=== PATIENT | female | born 1995 | race Caucasian/White ===

== ENCOUNTER 2018-04-30 04:53 | Emergency (ER) | payer MEDICAID ==
[~2018-04-30] VITALS: Ht 162.6 cm; Wt 124.9 kg
[2018-04-30 06:14] VITALS: BP 139/66
[2018-04-30] MEDS ORDERED: LIDOCAINE HCL/PF 1% 10 MG/ML 5ML VIAL IJ ONE (06:45)
[2018-04-30] MEDS ORDERED: BACITRACIN ZINC OINT UDPKT TOP ONE (06:45)
== END 2018-04-30 07:45 | disposition home or self-care (01) ==
LOC: ER 05:56
DX: S81.812A Laceration without foreign body, left lower leg, initial encounter (principal); W45.8XXA Other foreign body or object entering through skin, initial encounter; Y93.39 Activity, other involving climbing, rappelling and jumping off; Y92.89 Other specified places as the place of occurrence of the external cause; Y99.8 Other external cause status
CPT/HCPCS: 12002; 99283; J3490

== ENCOUNTER 2018-05-07 16:23 | Emergency (ER) | payer MEDICAID ==
[~2018-05-07] VITALS: Ht 162.6 cm; Wt 109.0 kg
[2018-05-07] MEDS ORDERED: IBUPROFEN 800MG TABLET PO ONE (20:30)
[2018-05-07 20:55] VITALS: BP 143/81
== END 2018-05-07 22:09 | disposition home or self-care (01) ==
LOC: ER 16:25
DX: S80.02XA Contusion of left knee, initial encounter (principal); W01.0XXA Fall on same level from slipping, tripping and stumbling without subsequent striking against object, initial encounter; Y93.89 Activity, other specified; Y92.89 Other specified places as the place of occurrence of the external cause; Y99.8 Other external cause status
CPT/HCPCS: 73562; 81025; 99283

== ENCOUNTER 2019-03-24 10:58 | Emergency (ER) | payer SELFPAY ==
[~2019-03-24] VITALS: Ht 162.6 cm; Wt 117.0 kg
[2019-03-24] MEDS ORDERED: KETOROLAC 15MG/ML VIAL IM ONE (13:45)
[2019-03-24 14:53] VITALS: BP 128/86
== END 2019-03-24 14:45 | disposition home or self-care (01) ==
LOC: ER 12:02
DX: R07.89 Other chest pain (principal); V49.50XA Passenger injured in collision with unspecified motor vehicles in traffic accident, initial encounter; Y93.89 Activity, other specified; Y92.410 Unspecified street and highway as the place of occurrence of the external cause
CPT/HCPCS: 71045; 96372; 99283; J1885

== ENCOUNTER 2024-10-06 14:34 | Emergency (ER) | payer MEDICAID, OTHER ==
[~2024-10-06] VITALS: Ht 167.6 cm; Wt 109.0 kg
[2024-10-06 14:44] VITALS: O2SAT 96
[2024-10-06 15:12] LABS: BASOPHILS % 0.7 % (0.0-2.0); EOSINOPHILS % 1.1 % (0.0-5.0); HEMATOCRIT. 42.8 % (36.0-48.0); HEMOGLOBIN. 13.9 g/dL (12.0-16.0); LYMPHOCYTES % 11.3 % (20.0-50.0); MEAN CORPUSCULAR HEMOGLOBIN 26.2 pg (28.0-32.0); MEAN CORPUSCULAR HGB CONC 32.6 g/dL (31.0-37.0); MEAN CORPUSCULAR VOLUME 80.5 fL (81.0-99.0); MEAN PLATELET VOLUME 9.5 fl (7.4-10.4); MONOCYTES % 5.3 % (2.0-8.0); NEUTROPHILS % 81.6 % (40.0-76.0); PLATELET 257 x1000/uL (130-400); RED BLOOD CELL COUNT 5.31 mill/uL (4.2-5.4); WHITE BLOOD COUNT 10.8 x1000/uL (4.5-11.0)
[2024-10-06 15:28] LABS: CHLORIDE 105 mEq/L (98-107); POTASSIUM 3.8 mEq/L (3.5-5.1); SODIUM 138 mEq/L (136-145)
[2024-10-06 15:29] LABS: CALCIUM 9.5 mg/dL (8.7-10.4); CARBON DIOXIDE 24 mEq/L (21-32)
[2024-10-06 15:34] LABS: CREATININE 0.7 mg/dL (0.6-1.0); GLUCOSE 109 mg/dL (70-105); UREA NITROGEN BLOOD 8 mg/dL (9-23)
[2024-10-06 15:40] LABS: TROPONIN I HIGH SENSITIVITY < 4 ng/L (3.0-34)
[2024-10-06 16:36] LABS: CLARITY URINE CLEAR (CLEAR); COLOR URINE YELLOW (YELLOW); GLUCOSE URINE NEGATIVE (NEGATIVE); KETONES URINE NEGATIVE (NEGATIVE); LEUKOCYTE ESTERASE URINE NEGATIVE (NEGATIVE); NITRITE URINE NEGATIVE (NEGATIVE); OCCULT BLOOD URINE NEGATIVE (NEGATIVE); PH URINE 5.5 (4.5-8.0); PROTEIN URINE NEGATIVE (NEGATIVE); UROBILINOGEN URINE 0.2 E.U./dL (0.2-1.0)
[2024-10-06] MEDS ORDERED: OMEP20TA23 MT (17:32)
[2024-10-06 17:35] VITALS: BP 137/93; PULSE 71; RESP 18; TEMP 36.9; O2SAT 96
== END 2024-10-06 17:52 | disposition home or self-care (01) ==
LOC: ER 14:34
DX: R10.12 Left upper quadrant pain (principal); Z87.19 Personal history of other diseases of the digestive system
CPT/HCPCS: 36415; 71045; 80048; 81003; 81025; 84484; 85025; 93005; 99284; 99285